=== PATIENT | female | born 1955 | race Caucasian/White ===

== ENCOUNTER 2016-11-28 15:43 | Inpatient (IN) ==
[2016-11-28] MEDS ORDERED: ASPIRIN PO STA (15:57)
--- NOTE | 2016-11-28 16:06 | EKG Report ---
Test Performed on : 11/28/2016 4:01:00 PM Test Reason : CHEST PAIN Blood Pressure : / mmHG Vent. Rate : 101 BPM Atrial Rate : 101 BPM P-R Int : 150 ms QRS Dur : 078 ms QT Int : 340 ms P-R-T Axes : 052 007 023 degrees QTc Int : 440 ms Sinus tachycardia. Nonspecific ST abnormality Abnormal ECG No previous ECGs available Unconfirmed Result
[2016-11-28 16:19] LABS: MANUAL DIFF NEEDED? NO
[2016-11-28 16:21] LABS: BASO% 0.3 % (0.0-0.8); EOS# 0.22 X1000 (0.0-0.7); EOS% 3.4 % (0.0-10.0); HEMATOCRIT 39.7 % (37.0-47.0); IMM GRAN# 0.01 X1000 (0.0-0.04); IMM GRAN% 0.2 % (0.0-0.5); LYMPH# 1.76 X1000 (1.2-3.4); MCH 28.9 PG (27-31); MCHC 32.7 g/dL (33-37); MCV 88.2 FL (81-99); MONO# 0.53 X1000 (0.11-0.59); MONO% 8.1 % (1.7-9.3); MPV 9.1 FL (7.4-10.4); PLT 220 X1000 (130-400)
[2016-11-28] MEDS ORDERED: NS 1,000 ML IV ONE ×2 (16:40→20:20)
[2016-11-28 16:41] LABS: INR 1.11 (0.86-1.15); PROTIME 14.6 Seconds (12.1-15.5)
[2016-11-28 16:51] LABS: AGAP 13; ALBUMIN 4.1 g/dL (3.5-5.0); ALKALINE PHOSPHATASE 62 U/L (32-104); BUN 11 mg/dL (8-22); CALCIUM 9.6 mg/dL (8.8-10.2); CHLORIDE 100 mmol/L (98-107); CK PROFILE 33 U/L (24-173); COSMO 280; GOT 12 U/L (10-30); GPT < 5 U/L (10-36); POTASSIUM 3.7 mmol/L (3.5-5.1); SODIUM 137 mmol/L (136-145); TCO2 25 mmol/L (25-35); TOTAL PROTEIN 7.3 g/dL (6.3-8.3)
[2016-11-28 17:05] LABS: BILIRUBIN URINE NEGATIVE (NEGATIVE); BLOOD URINE NEGATIVE (NEGATIVE); CLARITY CLEAR (CLEAR); COLOR YELLOW; GLUCOSE URINE NEGATIVE (NEGATIVE); LEUKOCYTES URINE TRACE (NEGATIVE); NITRITE URINE NEGATIVE (NEGATIVE); PROTEIN URINE NEGATIVE (NEGATIVE); UROBILINOGEN URINE NORMAL
[2016-11-28 17:06] LABS: URINE CAST NONE SEEN /LPF; URINE CRYSTAL NONE SEEN /HPF; URINE CULTURE PL NEEDED? YES; URINE EPITHELIAL CELLS >10 /HPF (<10); URINE SOURCE CLEAN CATCH; URINE WBC <10 /HPF (<10)
[2016-11-28 17:20] LABS: UR AMPHETAMINES QUAL NONE DETECTED (NONE DETECT); UR BARBITUATES QUAL NONE DETECTED (NONE DETECT); UR BENZODIAZEPIN QUAL NONE DETECTED (NONE DETECT); UR CANNABINOIDS QUAL NONE DETECTED (NONE DETECT); UR COCAINE QUAL NONE DETECTED (NONE DETECT); UR MDMA QUAL NONE DETECTED (NONE DETECT); UR METHADONE QUAL NONE DETECTED (NONE DETECT); UR METHAMPHETAMINE QUAL NONE DETECTED (NONE DETECT); UR OPIATES QUAL NONE DETECTED (NONE DETECT); UR OXYCODONE QUAL NONE DETECTED (NONE DETECT); UR PCP QUAL NONE DETECTED (NONE DETECT); UR TCA QUAL NONE DETECTED (NONE DETECT)
--- NOTE | 2016-11-28 17:30 | Diag Imaging Result Document ---
PROCEDURE NAME: CHEST-2 VIEWS - 11/28/2016 CHEST, TWO VIEWS: INDICATION: Chest pain. FINDINGS: The heart size is within normal limits. The pulmonary vasculature is not congested. No infiltrates or effusions identified. IMPRESSION: No acute abnormalities are appreciated.
--- NOTE | 2016-11-28 18:00 | Diag Imaging Result Document ---
PROCEDURE NAME: HEAD W/O CONTRAST - 11/28/2016 CT BRAIN WITHOUT CONTRAST: FINDINGS: No parenchymal hemorrhage. No epidural or subdural hematoma. No subarachnoid hemorrhage. No mass identified on this noncontrasted exam. No hydrocephalus. No sinus opacification. Questionable tiny ischemic area at the junction of the left temporal and occipital lobes. IMPRESSION: No hemorrhage. No definite acute abnormality. A preliminary report was given at 5:45 p.m.
[2016-11-28 18:47] LABS: HEMOGLOBIN A1C 6.5 % (4.8-6.0)
[2016-11-28] MEDS ORDERED: LOVENOX 1 MG/KG SUBQ ONE (19:37)
[2016-11-29] MEDS ORDERED: XANAX PO ONE (00:04)
[2016-11-29 06:59] LABS: MANUAL DIFF NEEDED? NO
[2016-11-29 07:08] LABS: BASO% 0.3 % (0.0-0.8); EOS# 0.23 X1000 (0.0-0.7); EOS% 3.4 % (0.0-10.0); HEMATOCRIT 38.4 % (37.0-47.0); HEMOGLOBIN 12.5 g/dL (12.0-16.0); IMM GRAN# 0.01 X1000 (0.0-0.04); IMM GRAN% 0.1 % (0.0-0.5); LYMPH# 1.79 X1000 (1.2-3.4); LYMPH% 26.4 % (20.5-51.1); MCH 28.9 PG (27-31); MCHC 32.6 g/dL (33-37); MCV 88.7 FL (81-99); MONO# 0.56 X1000 (0.11-0.59); MONO% 8.3 % (1.7-9.3); MPV 9.2 FL (7.4-10.4); NEUT% 61.5 % (42.2-75.2); PLT 212 X1000 (130-400); RBC 4.33 XMIL (4.2-5.4)
[2016-11-29 07:36] LABS: AGAP 10; ALBUMIN 3.9 g/dL (3.5-5.0); ALKALINE PHOSPHATASE 58 U/L (32-104); BUN 9 mg/dL (8-22); CALCIUM 9.1 mg/dL (8.8-10.2); CHLORIDE 108 mmol/L (98-107); COSMO 286; GOT 11 U/L (10-30); GPT < 5 U/L (10-36); POTASSIUM 4.1 mmol/L (3.5-5.1); SODIUM 143 mmol/L (136-145); TCO2 26 mmol/L (25-35); TOTAL PROTEIN 6.9 g/dL (6.3-8.3)
--- NOTE | 2016-11-29 07:55 | Diag Imaging Result Document ---
PROCEDURE NAME: ANGIOGRAM/PULMONARY ARTERIES - 11/28/2016 CTA CHEST: COMPARISON: None available. FINDINGS: There is no evidence of pulmonary embolism. There is no evidence of aortic dissection or aneurysm. There are a few calcified mediastinal lymph nodes indicating prior granulomatous disease. Otherwise, there is no evidence of significant lymphadenopathy. The heart is not enlarged. There is a calcified granuloma at the right lung apex. The lungs are grossly clear, otherwise. There are no airspace consolidations. There is no pleural fluid collection or pneumothorax. Limited views of the upper abdomen reveal a couple calcified stones in the lumen of the gallbladder. There is no evidence of gallbladder wall thickening or surrounding inflammation. There is an incidental partially calcified splenic artery aneurysm measuring up to 1.3 cm axially. There is low-dense mild thickening of the adrenal glands which are most compatible with adrenal adenomas or hyperplasia statistically. There are a few shotty mesenteric lymph nodes with surrounding haziness at the root of the mesentery. This is nonspecific but is often associated with mesenteric panniculitis. IMPRESSION: 1. No evidence of pulmonary embolism or other definite acute chest pathology. 2. Incidental cholelithiasis. 3. Incidental splenic artery aneurysm. 4. Other incidental/nonacute findings detailed above.
[2016-11-29] MEDS ORDERED: SINEMET 25/100 PO SCH ×2 (12:15→17:00)
[2016-11-29] MEDS ORDERED: ANTIVERT PO PRN (12:19)
[2016-11-29] MEDS ORDERED: ZOFRAN IV PRN (12:19)
--- NOTE | 2016-11-29 12:59 | HISTORY AND PHYSICAL ---
PRIMARY CARE PHYSICIAN: Dr. Keith Davis. CHIEF COMPLAINT: Syncopal episode at work, and feeling dizzy and lightheaded. HISTORY OF PRESENTING ILLNESS: This is a 61-year-old female who presented to [facility] to the ER after she had a syncopal episode at work. She stated that she had, approximately 30 minutes before the episode, stretched her back on the floor. When she got up, she was feeling dizzy. She sat down and then passed out. After the episode of syncope, she started to feel some palpitations, shortness of breath, and weakness. Now, she states that when she lies back in bed the room is spinning, and if she moves her head [id number] she feels dizziness, vertigo. Workup in the ER showed a D-dimer of 0.74. Her blood sugar was 226. She is not a known diabetic, but we checked a hemoglobin A1c and it was 6.5. All her other laboratories were essentially benign. We did a chest x-ray that showed no acute abnormality. A head CT showed no hemorrhage and no definite acute abnormality. Pulmonary arteriogram showed no evidence of pulmonary emboli or other acute chest pathology. She was admitted to the medical unit for further evaluation and treatment. PAST MEDICAL HISTORY: Parkinson's, hypertension, and hyperlipidemia. PAST SURGICAL HISTORY: Hysterectomy. FAMILY HISTORY: Noncontributory. SOCIAL HISTORY: She currently lives with family. Denies any tobacco, alcohol, or illicit drug use. ALLERGIES: She has no known drug allergies. HOME MEDICATIONS: She takes carbidopa/levodopa 25/100 one p.o. daily. LABORATORY DATA: White blood cell count of 6.53, hemoglobin 13, hematocrit 39.7, and platelets 220,000. PT and INR 14.6 and 1.11. D-dimer was 0.74. Sodium 137, potassium 3.7, chloride 100, CO2 of 25, BUN of 11, creatinine 0.8, glucose 226, with a hemoglobin A1c of 6.5. This a.m., her blood sugar was 131. Creatine kinase was 33. Troponin was less than 0.010. proBNP was 14 TSH was 1.15. Urinalysis was negative. Urine drug screen was negative. IMAGING: A chest x-ray showed no acute abnormalities. EKG showed sinus tachycardia at 101. Head CT showed no hemorrhage and no definite acute abnormality. Pulmonary arteriogram showed no evidence of a pulmonary embolism or other definite acute chest pathology. Incidental cholelithiasis, incidental splenic artery aneurysm. REVIEW OF SYSTEMS: She denied any fever, chills, or blurred vision. She is positive for dizziness, lightheadedness, vertigo. Denies any chest pain, coughing, shortness of breath. Denied any abdominal pain, constipation, diarrhea, burning or hurting with urination. PHYSICAL EXAMINATION: VITAL SIGNS: On arrival, pulse 104, respirations 20, blood pressure 182/90, saturating 98% on room air. GENERAL: This is a 61-year-old female lying in the bed, and answers questions appropriately. HEENT: Normocephalic and atraumatic. Pupils are equal, round, reactive to light. Extraocular movements are intact. The oropharynx and nares are clear. NECK: Supple. LUNGS: Clear to auscultation bilaterally, with equal lung expansion and chest wall movement. HEART: Regular rate and rhythm. No murmurs, rubs, or gallops. ABDOMEN: Soft, nontender, nondistended. Bowel sounds are present x4 quadrants. EXTREMITIES: No clubbing, cyanosis, or edema. NEUROLOGICAL: The cranial nerves 2-12 appear grossly intact. ASSESSMENT: 1. Syncope. 2. Vertigo. 3. Elevated D-dimer. 4. Hypertension. 5. Parkinson disease. PLAN: She was admitted to the medical unit at [facility] and placed on neurologic checks q.2 hours, diabetic diet, and telemetry. We will obtain a venous ultrasound of her bilateral lower extremities, as the patient states she has not noted some tenderness to her left calf and that her daughter has a history of pulmonary emboli. We will check an echocardiogram and a carotid ultrasound. Urine culture is pending. We will continue her home medications. Attending, Dr. Gaming, attempted some postural neck movements, as he thought that she might have a questionable benign positional vertigo. Those were all negative and so he would like Neurology input at this time, so we will consult Neurology for further input on this patient. We will recheck laboratories in the a.m. Dictated by ELA Puri for Kendrick Mooney MD cc: ELA Puri MD Kirk L. Jackson, MD
[2016-11-29] MEDS ORDERED: TYLENOL PO PRN (15:27)
[2016-11-29] MEDS: SINEMET 25/100 PO SCH (20:16)
[2016-11-29] MEDS: XANAX PO SCH (23:00)
[2016-11-30 06:31] LABS: MANUAL DIFF NEEDED? NO
[2016-11-30 06:38] LABS: BASO% 0.3 % (0.0-0.8); EOS# 0.25 X1000 (0.0-0.7); EOS% 3.5 % (0.0-10.0); HEMATOCRIT 40.9 % (37.0-47.0); HEMOGLOBIN 13.1 g/dL (12.0-16.0); IMM GRAN# 0.01 X1000 (0.0-0.04); IMM GRAN% 0.1 % (0.0-0.5); LYMPH# 2.28 X1000 (1.2-3.4); LYMPH% 31.6 % (20.5-51.1); MCH 28.3 PG (27-31); MCV 88.3 FL (81-99); MONO# 0.62 X1000 (0.11-0.59); MONO% 8.6 % (1.7-9.3); MPV 9.6 FL (7.4-10.4); NEUT% 55.9 % (42.2-75.2); PLT 234 X1000 (130-400); RBC 4.63 XMIL (4.2-5.4)
[2016-11-30 07:13] LABS: AGAP 12; BUN 12 mg/dL (8-22); CALCIUM 9.5 mg/dL (8.8-10.2); CHLORIDE 104 mmol/L (98-107); COSMO 282; POTASSIUM 4.2 mmol/L (3.5-5.1); SODIUM 141 mmol/L (136-145); TCO2 25 mmol/L (25-35)
[2016-11-30] MEDS: SINEMET 25/100 PO SCH ×3 (08:47→20:30)
--- NOTE | 2016-11-30 08:48 | ECHO REPORT ---
ORDER DATE: 11/29/2016 INTERPRETING PHYSICIAN: Dr. Rutherford. REQUESTING PHYSICIAN: Dr. Jolene Robledo, hospitalist. CLINICAL INDICATIONS: A 61-year-old female with syncope. M-MODE MEASUREMENTS: Right ventricle: 2.7 cm. Left ventricle end diastole: 4.5 cm. Left ventricle end systole: 2.9 cm. Posterior wall: 0.9 cm. Interventricular septum: 0.9 cm. Left atrium: 3.1 cm. Aortic root: 3.3 cm. SUMMARY OF 2-DIMENSIONAL IMAGIN. The left ventricular function is normal, ejection fraction of 63%. The chamber is not dilated. 2. The right ventricle is normal. 3. The aortic valve looks normal, color flow mapping unremarkable. 4. The mitral valve looks normal. Color flow mapping indicates trace of regurgitation. Pulsed wave Doppler of mitral inflow shows a mild reversal of the E and the A wave. 5. The tissue Doppler of septal and lateral mitral annulus averages 8 cm. Pulmonary venous flow is normal. 6. The tricuspid valve shows a mild degree of regurgitation. The inferior vena cava is not dilated. Pulmonary pressure is estimated at 40 mmHg. 7. The pulmonic valve looks normal, color flow mapping unremarkable. 8. There is no pericardial effusion, masses, nor thrombus. CONCLUSIONS: In summary, this study shows: 1. Normal left ventricular systolic function. 2. A mild degree of pulmonary hypertension estimated at 40 mmHg. 3. No evidence of any significant valvular abnormality. 4. No diastolic dysfunction. Clinical correlation recommended. cc: MD Maegan Rosado CRNP
--- NOTE | 2016-11-30 09:49 | CONSULTATION ---
DATE OF CONSULTATION: 11/30/2016 HISTORY OF PRESENT ILLNESS: Ms. Mixon is 61 years old and she has reported previous diagnosis of parkinsonism. There were recent episodes of syncope or near syncope, possibly vertigo. History from the patient is that she felt dizzy at work 2 days ago without specific lightheadedness or room spinning features, but she did have a sense that she needed to sit down. She sat down and rested for several minutes. When she turned and began to stand up from the chair, she had a sense that she was about to collapse with dizziness, and she commented to coworker "I think I'm going to ." She remembers falling back into the arms of the chair. She had a sense that she knew what was going on around her, and that she did not ever completely lose consciousness. She did not lose bowel or bladder control. She remembers telling a coworker to call for an ambulance. She remembers ambulance personnel checking on her. She was transported to the emergency room. She remembers being on the CT table following scan, and as she was raising her head, she had sudden dizziness with room-spinning features. She did not recall room-spinning features with the initial episode at work. She was helped off the table into the wheelchair and back to the emergency room. She has not had any more episodes of dizziness, lightheadedness, collapse. While being examined later, with some head hanging and head-turning maneuvers, she did have temporary dizziness without loss of consciousness. There was never any focal neurologic feature. There was no limb jerking, tongue biting, lip biting, postictal feature. She reports no previous similar spells. She has not been febrile. She has not had URI or viral GI symptoms. She has not had head, neck, ear injury. There was no change in hearing or vision. Last medication change, by her report, was the addition of gabapentin a few months ago. She has had alprazolam over the last several months averaging 1 dose per week, by her report, with last dose several days prior to this episode. She has been taking carbidopa/levodopa 25/ 100 2.5 tablets t.i.d. (750 mg levodopa daily) chronically with no recent changes and no recent missed doses. Her neurology followup for management of parkinsonism is in [place]. Workup here includes noncontrast CT of the head done on admission, reported unremarkable. Lab has been unremarkable. She has been afebrile. There has not been significant systolic blood pressure fluctuation recorded. Heart rate has been stable. PHYSICAL EXAMINATION: On exam now, she is awake, alert, attentive, appropriate , conversant, oriented. Speech is not dysarthric. Language function is intact on brief bedside testing. Memory is good. Head and neck are unremarkable. Visual river are full, tested by confrontational finger counting. She has full lateral eye movements and very good upgaze conjugately. Facial motility is normal and symmetric. Gag is intact. Tongue is midline. She can hear. Shoulder shrug is equal. Strength is normal in the arms and legs. She did well on [id number] testing. Tone is normal now without cogwheeling or rigidity. I did not notice any tremor or other abnormal movement during my time at the bedside. I did not test her gait. She has good sensation on gross testing over the limbs. Proprioception is good at the index finger PIP joint bilaterally. IMPRESSION: 1. Recent spells, uncertain etiology. The room-spinning features and report that symptoms were at least partially reproduced by head hanging during examination are consistent with positional vertigo. Some features with the initial episode and with the episode getting up from CT scan table may be consistent with postural lightheadedness since each of these occurred as she was getting up. History to me is that she did not lose consciousness with any of these episodes. I am not certain that history is accurate, but that is the history that she provided. I do not have any urgent suggestion. In light of her background history, I think it would be reasonable to plan brain MRI electively. She recalls previous MRI several years ago was unremarkable. We discussed meclizine, ENT referral, hydration. I encouraged her to drink plenty of fluids, to stand slowly and to sit quickly if she is lightheaded. 2. Reported history of parkinsonism. She is not parkinsonian at this moment. I do not know when was her last Sinemet dose. She may have idiopathic Parkinson disease, very well controlled with current management, but I cannot confirm that diagnosis. We discussed the propensity to lightheadedness and syncope associated with Parkinson disease, with other parkinsonian syndromes and with antiparkinsonian medications. Thanks for asking me to see Ms. Mixon. cc: Edgar Chan III, MD [facility]
--- NOTE | 2016-11-30 13:26 | PROGRESS NOTE ---
DATE: 11/30/2016 SUBJECTIVE: This patient states that she is feeling a little bit better. The episodes of vertigo are not that frequent compared with yesterday. She was evaluated by the neurology department who recommended to do at some point an MRI and also to be evaluated by the ENT. I explained everything to the patient. I tried to do myself the Catarina maneuver but this patient continues with the symptoms. OBJECTIVE: Vital Signs: Temperature 98.1 degrees, pulse 79, respiratory rate 18, blood pressure 143/81, oxygen saturation 97% on room air. HEENT: Head normocephalic. No trauma. PERRLA. Neck: Supple. No JVD. No masses. Central trachea. Chest: Clear to auscultation. No wheezing. No rales. Abdomen: Soft, nontender, nondistended. No hepatosplenomegaly. Extremities: No edema. No clubbing. No cyanosis. Neurological: The patient is alert and oriented x3. No focal neurological deficits. LABORATORY: WBC 7.2, hemoglobin 13.1, hematocrit 40.9, platelets 234,000. Sodium 141, potassium 4.2, chloride 104, bicarbonate 25, BUN 12, creatinine 0.6, glucose 110, calcium 9.5. ASSESSMENT AND PLAN: 1. Questionable syncope. For me this looks more like vertigo. I do believe that this can be the 9 positional vertigo. I did the Catarina maneuver but this patient is having the same symptoms. I will ask for an MRI, which was recommended by the neurology department. If this is normal I will discharge this patient and follow up with the ENT. 2. Elevated D-dimer. She has a negative CT angiogram of the chest for pulmonary embolism. Pending results of lower extremity venous ultrasound and carotid Doppler study. If they are normal we will continue to follow. 3. Hypertension. Blood pressure has been stable in the 140s. Continue to monitor. 4. Parkinson disease. Continue with the same management. cc: Kendrick Mooney MD
[2016-11-30] MEDS: XANAX PO SCH ×2 (14:08→20:30)
--- NOTE | 2016-11-30 16:22 | Diag Imaging Result Document ---
PROCEDURE NAME: MRI BRAIN W W/O CONTRAST - 11/30/2016 MRI BRAIN WITH AND WITHOUT IV CONTRAST: COMPARISON: None available. FINDINGS: There is no evidence of acute infarct. There is mild patchy T2/FLAIR hyperintensity in the subcortical white matter and periventricular white matter of the left hemisphere suggesting minimal microangiopathy most likely. There is no discrete intracranial mass, mass effect, or intracranial hemorrhage. There is no evidence of hydrocephalus. There is no abnormal intracranial enhancement identified. Surrounding soft tissues and bony structures are essentially unremarkable. IMPRESSION: A few small foci of T2/FLAIR hyperintensity in the periventricular and subcortical white matter of the left hemisphere most compatible with very mild microangiopathy. Essentially unremarkable MRI brain, otherwise.
[2016-12-01 06:21] VITALS: BP 123/63
--- NOTE | 2016-12-01 07:18 | Extremity Venous Study ---
PROCEDURE NAME: Carotid Ultrasound - 11/29/2016 CAROTID DOPPLER: COMPARISON: None available. FINDINGS: RIGHT: There is moderate atherosclerotic plaque involving the distal ICA and carotid bulb with shadowing. The peak systolic velocity measures 145, 87, 167, 71, 67, 79, and 172 cm/sec at the right subclavian artery, CCA, bifurcation, proximal ICA, mid ICA, distal ICA, and ECA, respectively. There is antegrade flow in the vertebral artery. The carotid ratio is 0.91. LEFT: There is moderate atherosclerotic disease with a mixture of calcified and noncalcified plaques involving much of the mid and distal CCA as well as the carotid bulb. The peak systolic velocity measures 153, 98, 96, 123, 74, 68, and 118 cm/sec at the left subclavian artery, CCA, bifurcation, proximal ICA, mid ICA, distal ICA, and ECA, respectively. There is antegrade flow in the vertebral artery. The carotid ratio is 1.25. IMPRESSION: Bilateral atherosclerotic plaques involving the carotid bulb on the right and the CCA and carotid bulb on the left with velocities suggesting a 60%-79% stenosis at the right carotid bulb and a 40%-59% stenosis at the left proximal ICA.
--- NOTE | 2016-12-01 07:19 | Extremity Venous Study ---
PROCEDURE NAME: Venous U/S Bilateral Legs - 11/29/2016 BILATERAL LOWER EXTREMITY VENOUS DOPPLER: COMPARISON: None available. FINDINGS: No discrete filling defects are identified in the deep venous systems bilaterally. There is normal Doppler flow, compressibility, and augmentation involving the right and left common femoral veins, superficial femoral veins, popliteal veins, posterior tibial veins, and peroneal veins. The great saphenous veins appear to be patent as well. Surrounding soft tissues are grossly unremarkable on these images. IMPRESSION: No evidence of deep venous thrombosis.
[2016-12-01] MEDS: SINEMET 25/100 PO SCH (09:20)
--- NOTE | 2016-12-01 20:06 | DISCHARGE SUMMARY ---
ADMISSION DATE: 11/28/2016 DISCHARGE DATE: 12/01/2016 PRIMARY CARE PHYSICIAN: Keith Davis MD. ADMISSION DIAGNOSES: 1. Syncope. 2. Vertigo. 3. Elevated D-dimer. 4. Hypertension. 5. Parkinson's disease. DISCHARGE DIAGNOSES: 1. Syncope resolved. 2. Vertigo improved. 3. Elevated D-dimer with negative PE and DVT study. 4. Hypertension. 5. Parkinson's disease. SUMMARY OF FINDINGS: This is a 61-year-old female who presented to the ER after she had a syncopal episode at work. She stated that she had approximately 30 minutes before the episode laid down on the floor and stretched out her back. When she got up she was feeling very dizzy, sat down and then passed out. After this episode of syncope, she started feeling some palpitations, shortness of breath, and weakness. She now states that when she lied back in the bed completely flat, that the room was spinning and that if she moved her head side to side, she felt dizzy and vertigo. Workup in the ER showed a D-dimer of 0.74. Pulmonary arteriogram showed no evidence of a PE or other acute chest pathology. We also did a bilateral venous Doppler that showed no evidence of deep vein thrombosis. We had our attending at that time, Dr. Gaming, do postural head maneuvers. The patient was positive for vertigo during that so we consulted Neurology who felt that a brain MRI would be of significance for this patient. So we would did that. She had an impression of very mild microangiopathy but essentially unremarkable otherwise. He felt that she would be best to follow up with ENT, use meclizine as needed for the dizziness and stay well hydrated. We discussed all of the results of her test findings including an echocardiogram that showed an ejection fraction of 63% with normal ventricular function and no diastolic dysfunction. Her carotid Doppler study showed her left carotid with 60-79% stenosis. She was also noted to have a right carotid with 40-59% stenosis at the left proximal ICA. It is felt that she can safely be discharged home. FOLLOWUP: 1. She will need to follow up with the ENT. 2. She will also need to follow up with Vascular Surgery. DISCHARGE MEDICATIONS: 1. Continue carbidopa/levodopa at 25/100, 2 to 2-1/2 tablets p.o. t.i.d. and Antivert 25 mg p.o. t.i.d. p.r.n. #90 with no refills. 2. She will also start aspirin 325 p.o. daily. 3. Pravastatin 40 mg p.o. at bedtime. All discharge instructions have been reviewed with the patient and she verbalizes understanding. DISCHARGE TIME: 35 minutes. Dictated by ELA Puri for Aydin Moralez MD cc: ELA Puri MD Kirk L. Jackson, MD
--- NOTE | 2016-12-04 15:45 | PROVIDER DOCUMENTATION ---
This chart was entered by Chris Holley Scribe, acting as scribe for Tip Johns MD. HPI-Syncope/Dizziness <Connor Hsu - Last Filed: 11/28/16 20:18> - General Source: patient - History of Present Illness-Syncope/Dizzy Prior Episodes: reports: single episode today Onset/Duration: reports: abrupt, this afternoon Timing: reports: improving Position/Activity at time of episode: reports: sitting Symptoms prior to episode: reports: lightheaded. denies: racing heart, abdominal pain, back pain, diaphoresis Context: reports: lost consciousness, became unresponsive Loss of Consciousness: brief (seconds) Location of injury. (If syncope resulted in an injury.): reports: none Current Symptoms: reports: weakness Recently Seen Here or By Another Healthcare Provider: No <Tip Johns - Last Filed: 12/04/16 15:45> - General Chief Complaint: Near Syncope Stated Complaint: near syncope Time Seen by Provider: 11/28/16 16:10 Allergies/Adverse Reactions: Patient Allergies Allergy/AdvReac Type Severity Reaction Status Date / Time No Known Allergies Allergy Verified 11/28/16 15:45 Home Medications: Home Medication List Medication Instructions Recorded Confirmed Last Taken Type Carbidopa/Levodopa [Carbidopa-Levo 2 - 2.5 tab PO TID 11/28/16 11/29/16 History 25-100 Tab] Aspirin 325 mg PO DAILY #30 tablet 12/01/16 Unknown Rx Meclizine [Antivert] 25 mg PO TID PRN PRN #90 tablet 12/01/16 Unknown Rx PRAVAstatin [Pravachol] 40 mg PO QHS #30 tablet 12/01/16 Unknown Rx - History of Present Illness-Syncope/Dizzy Nature of Presenting Problem: patient is a 61 y/o F that presents to the ER after she had a syncopal episode at work. patient was sitting down when she passed out. reports some dizziness prior to passing out. 30mins prior she stretched her back on floor, when she got up she was dizzy. patient reports coming to after episode of syncope and started to feel anxiety( palpitations shortness of breath). Now she just has some weakness feeling and no other symptoms. (Chris Holley) patient is a 61 y/o F that presents to the ER after she had a syncopal episode at work. patient was sitting down when she passed out. reports some dizziness prior to passing out. 30mins prior she stretched her back on floor, when she got up she was dizzy. patient reports coming to after episode of syncope and started to feel anxiety( palpitations shortness of breath). Now she just has some weakness feeling and no other symptoms. (Tip Johns) Review of Systems - Adult - REVIEW OF SYSTEMS - ADULT Constitutional: denies: chills, fever Eyes: denies: decreased vision, blurred vision, double vision Ears, Nose, Mouth & Throat: denies: ear discharge, ear pain, sinus problem, throat pain, throat swelling Cardiovascular: reports: palpitations, syncope. denies: chest pain Respiratory: reports: shortness of breath. denies: dyspnea on exertion, wheezing Gastrointestinal: denies: abdominal pain, diarrhea, nausea, vomiting Genitourinary: reports: no symptoms reported Musculoskeletal: reports: muscle weakness. denies: joint pain, joint swelling Integumentary: reports: no symptoms reported Neurological: reports: dizziness/vertigo, syncope Psychiatric: reports: no symptoms reported Endocrine: reports: no symptoms reported Hematologic/Lymphatic: reports: no symptoms reported Allergic/Immunologic: reports: no symptoms reported All Other Systems: Reviewed and Negative <Tip Johns - Last Filed: 12/04/16 15:45> Past History - Adult - PAST MEDICAL HISTORY-ADULT Review of Records: reports: Old Records Reviewed, Nursing Assessment Review, Medications Reviewed Cardiovascular: reports: HTN, hyperlipidemia Neurological: reports: Parkinson's - PRIOR SURGERIES/PROCEDURES Surgical/Procedure History: reports: hysterectomy - IMMUNIZATION STATUS Childhood Immunizations: See Nurse Assessment Flu Vaccine: See Nurse Assessment - FAMILY HISTORY Family History: reviewed, not pertinent - SOCIAL HISTORY Smoking: non-smoker Living Situation: family <Tip Johns - Last Filed: 12/04/16 15:45> Physical Exam-General - PHYSICAL EXAM-ADULT Initial Vital Signs Reviewed: Yes - CONSTITUTIONAL General Appearance: alert, no apparent distress - EYES Eyes: PERRL/EOMI, pink conjunctivae - HEAD, EARS, NOSE, MOUTH & THROAT HENMT: normocephalic/atraumatic, moist mucous membranes, normal ENT inspection - NECK Neck: full range of motion, normal inspection - RESPIRATORY Respiratory: lungs clear, normal breath sounds, no respiratory distress, no accessory muscle use - CARDIOVASCULAR Cardiovascular: regular rate, rhythm, no edema, no JVD - GASTROINTESTINAL (ABDOMEN) Abdominal Exam: normal bowel sounds, non tender, soft, no organomegaly - MUSCULOSKELETAL Extremity: normal range of motion, normal inspection, no pedal edema - SKIN Integumentary: normal color, normal turgor, warm/dry - NEUROLOGIC Neurologic: language and literature division chair II-XII nml as tested, no motor/sensory deficits - PSYCHIATRIC Psych/Mental Status: normal mood/affect, normal thought content, normal thought process, oriented x 3 <Tip Johns - Last Filed: 12/04/16 15:45> Progress - PLAN OF CARE/RESULTS Result Diagrams: 11/28/16 16:11 11/28/16 16:11 - REASSESSMENT Reassessment #2 Status: unchanged (HAD 2 "BLACK-OUT" EPISODES SINCE ARRIVAL OF BRIEF DURATION. NOT WITNESSED BY STAFF. SPOKE W DR. COBB REC ADMIT. ORDERS FOR ADMISSION FROM DR. MALDONADO WRITTEN) <Connor Hsu - Last Filed: 11/28/16 20:18> - PLAN OF CARE/RESULTS Result Diagrams: 11/30/16 05:25 11/30/16 05:25 - REASSESSMENT Reassessment #1 Time Reassessed: 18:26 Status: improving (Pt isdoingmuch better,asymptomatic.I discussee with her for the elevated D-dimer and pt requested to do a DVT and PE work up. Because kezia has been feeling L calf discomfort and her daughter has h/o PE. Care turned over to Dr. Hsu in detail.) - EKG 1 Time of EKG reading by physician:: 16:01 EKG Read and Signed by:: Tip Johns EKG Interpretation (*Must complete 3 of following elements*): Abnormal Rate: 101 Rhythm: Sinus tachycardia [place]: normal QRS: normal [place] Interval: normal ST Wave: non-specific ST changes - XRAY 1 XRAY Study: Chest Impression: Normal XRAY Interpretation: nad - CT/MRI 1 CT Study: Head Impression: Normal CT Results: nad - CHANGE OF SHIFT REPORT (ED Provider) Report Given and Care Transferred to:: Dr. Hsu Time of Transfer: 18:28 Items Pending: Labs, CT/MRI Results, Ultrasound Results, Other ( willorfderCT chest for the PE study and will discuss with PT for the b/l LE US options.) <Tip Johns X - Last Filed: 12/04/16 15:45> - PLAN OF CARE/RESULTS Progress/Plan/Lab Results: Orders Category Date Time Status Admit - [facility] - [facility] Routine AdmDCTranf 11/28/16 20:20 Ordered Activity - Bed Rest with BRP ORDERED Care 11/28/16 20:20 Active Cardiac Monitoring DIRECTED Care 11/28/16 15:57 Completed Neurological Check q2h Care 11/28/16 20:20 Active Oxygen Therapy- ED Nursing DIRECTED Care 11/28/16 15:57 Completed Saline Loc DIRECTED Care 11/28/16 20:20 Completed Saline Loc NOW Care 11/28/16 15:57 Completed Vital Signs Order ROUTINE Care 11/28/16 20:20 Completed Diabetic Diet Diet 11/29/16 06:00 Completed ANGIOGRAM/PULMONARY ARTERIES [CT] Stat Exams 11/28/16 18:24 Completed CHEST-2 VIEWS [RAD] Stat Exams 11/28/16 15:57 Completed HEAD W/O CONTRAST [CT] Stat Exams 11/28/16 16:40 Completed A1C [A1C HGB W EST AVG GLUCOSE] [CHEM] Stat Lab 11/28/16 16:11 Completed CBC WITH DIFF [HEME] Routine Lab 11/29/16 06:50 Completed CBC WITH ELECTRONIC DIFF [HEME] Stat Lab 11/28/16 16:11 Completed CK PROFILE [SP CHEM] Stat Lab 11/28/16 16:11 Completed COMPREHENSIVE METABOLIC PANEL [CHEM] Routine Lab 11/29/16 06:50 Completed COMPREHENSIVE METABOLIC PANEL [CHEM] Stat Lab 11/28/16 16:11 Completed D-DIMER PL [COAG] Stat Lab 11/28/16 16:11 Completed MAGNESIUM [CHEM] Stat Lab 11/28/16 16:11 Completed PRO B-NATRIURETIC PEPTIDE Stat Lab 11/28/16 16:11 Com[address]IME WITH INR PL [COAG] Stat Lab 11/28/16 16:[address] [COAG] Stat Lab 11/28/16 16:11 Completed TROPONIN T Stat Lab 11/28/16 16:11 Completed TSH Stat Lab 11/28/16 16:11 Completed UDS [URINE DRUG SCREEN PL] Stat Lab 11/28/16 16:[address] W/POSS RFLX CULT [URINALYSIS] Stat Lab 11/28/16 16:31 Completed URINE CULTURE [RM] Routine Lab 11/28/16 17:06 Completed 0.9% Sodium Chloride Inj [Ns] 1,000 ml Med 11/28/16 16:40 Discontinued IV 250 mls/hr 0.9% Sodium Chloride Inj [Ns] 1,000 ml Med 11/28/16 20:20 Discontinued IV 70 mls/hr Aspirin Med 11/28/16 15:57 Discontinued 325 mg PO STAT STA Enoxaparin 1 mg/kg [Lovenox 1 mg/kg] Med 11/28/16 19:37 Discontinued 1 each SUBQ NOW ONE Telemetry [OM.EQ] Routine Oth 11/28/16 20:20 Active EKG [EKG] Stat Ther 11/28/16 15:57 Draft Transfer/Admit Order [TRANSFER] Routine Transfer 11/28/16 20:25 Completed Departure - Departure Time of Disposition Decision: 20:00 Certified Medical Emergency: Emergent - Critical Care Note This patient required my direct & personal management of CC.: No <Connor Hsu - Last Filed: 11/28/16 20:18> - Departure Time of Disposition Decision: 20:01 Certified Medical Emergency: Emergent - Critical Care Note This patient required my direct & personal management of CC.: No <Tip Johns - Last Filed: 12/04/16 15:45> - Departure DIAGNOSIS: Syncope and collapse Disposition: ADMITTED INPATIENT 09 Condition: Fair This chart was documented by the indicated scribe, (Chris Holley, Scribe) and accurately reflects the services I performed and decisions made by me, Tip Johns MD, as attested by the provider's signature.
== END 2016-12-01 11:19 | disposition home or self-care (01) ==
LOC: P.ED 15:43 → P.MEDSURG 15:43 → SUATTDRO 20:48 → OBSVTOIN 20:48
PROVIDERS: ATTEND Internal Medicine